=== PATIENT | male | born 1995 | race Caucasian/White ===

== ENCOUNTER 2018-07-29 08:52 | Emergency (ER) | payer SELFPAY ==
[2018-07-29] MEDS ORDERED: Diphtheria,Pertussis(Acell),Tetanus Vaccine 0.5 ML Syringe IM ONE (09:04)
[2018-07-29] MEDS ORDERED: Bupivacaine 0.25% 10 ML SDV INJECT ONE (09:07)
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
[2018-07-29 10:03] VITALS: BP 126/84
== END 2018-07-29 10:04 ==
LOC: MW.ED 08:52
DX: S51.812A Laceration without foreign body of left forearm, initial encounter (principal); F17.210 Nicotine dependence, cigarettes, uncomplicated; Z23 Encounter for immunization; W25.XXXA Contact with sharp glass, initial encounter
CPT/HCPCS: 12004; 90471; 90715; 99282; J3490